=== PATIENT | male | born 1985 | race Caucasian/White ===

== ENCOUNTER → 2018-09-04 | Outpatient (CLI) | payer OTHER ==
--- NOTE | 2018-09-04 20:49 | MR ---
EXAMINATION TYPE: MR knee RT wo con DATE OF EXAM: 09/04/2018 COMPARISON: NONE HISTORY: Rt knee pain x 2 years, hx trauma TECHNIQUE: Multiplanar, multisequence images of the knee is performed without IV contrast. FINDINGS: MEDIAL MENISCUS: Anterior and posterior horns are intact without tear. LATERAL MENISCUS: Anterior and posterior horns are intact without tear. CRUCIATE LIGAMENTS: The anterior and posterior cruciate ligaments are intact and unremarkable. COLLATERAL LIGAMENTS: The medial collateral ligament and lateral collateral ligament complex are inta ct and unremarkable. EXTENSOR MECHANISM: Visualized quadriceps and patellar tendons are intact. EFFUSION: There is small suprapatellar joint effusion. POPLITEAL CYST: No popliteal/kwan cyst. TRICOMPARTMENT SPACES: Tricompartment joint spaces are fairly well maintained. No significant spurrin g is seen. CARTILAGE: Tricompartment articular cartilage is fairly well preserved. BONE MARROW SIGNAL: Marked heterogeneity with more focal heterogeneous increased T2 signal in the dis alexandra femur involving medial and lateral epicondyles lateral portion slightly more prominent. There are similar findings in the tibial plateau more prominent lateral aspect. No obvious area of low T1 sign al to suggest fracture. OTHER: Mild fluid signal Hoffa's fat pad anterior superior aspect noted sagittal image 17 for referen ce. IMPRESSION: Heterogeneity with diffuse bone marrow edema and or osseous contusion near the articular surface slightly more pronounced laterally may reflect products of altered walking mechanics related to pain. Small suprapatellar joint effusion. No meniscal or ligamentous tear. Possible Hoffa's fat pa d impingement syndrome, correlate clinically.
== END | disposition home or self-care (01) ==
LOC: RADMRIMAIN 19:31
PROVIDERS: ATTEND Orthopaedic Surgery
DX: M25.561 Pain in right knee (principal); M25.48 Effusion, other site